=== PATIENT | female | born 1990 | race Caucasian/White ===

== ENCOUNTER 2022-12-18 20:58 | Outpatient (OUT) | payer OTHER, SELFPAY | END 2022-12-18 20:59 | PROVIDERS: PCP Psychiatry & Neurology Neurology; Visit Provider Psychiatry & Neurology Neurology | DX: G47.33 Obstructive sleep apnea (adult) (pediatric) (principal); G47.00 Insomnia, unspecified | CPT/HCPCS: 95810 ==

== ENCOUNTER 2023-02-19 19:52 | Outpatient (OUT) | payer OTHER, SELFPAY | END 2023-02-19 19:53 | disposition home or self-care (01) | LOC: SLEEP 19:52 | PROVIDERS: PCP Psychiatry & Neurology Neurology; Visit Provider Psychiatry & Neurology Neurology | DX: G47.33 Obstructive sleep apnea (adult) (pediatric) (principal) | CPT/HCPCS: 95811 ==